=== PATIENT | female | born 2000 | race Caucasian/White ===

== ENCOUNTER 2024-02-19 03:00 | Emergency (ER) | payer MEDICAID ==
[~2024-02-19] VITALS: Ht 167.6 cm; Wt 54.4 kg
[2024-02-19 03:10] VITALS: BP_SYST 125; PULSE 90; RESP 18; TEMP 98.4; O2SAT 98
[2024-02-19] MEDS: KETOROLAC TROMETHAMINE 30 MG VIAL IVP ONE (03:56)
[2024-02-19 04:14] LABS: BASOPHILS % (AUTO) 0.2 % (0.0-2.0); EOSINOPHILS # (AUTO) 0.1 K/uL (0.0-0.4); HEMATOCRIT 41.4 % (36-48); LYMPHOCYTES # (AUTO) 1.9 K/uL (1.0-5.5); MEAN CORPUSCULAR HEMOGLOBIN 30 pg (27-31); MEAN CORPUSCULAR HGB CONC 34 % (32-36); MEAN CORPUSCULAR VOLUME 87 fL (79.0-98.0); MONOCYTES # (AUTO) 0.6 K/uL (0.0-1.0); MONOCYTES % (AUTO) 8.9 % (1.7-9.3); NEUTROPHILS # (AUTO) 3.8 K/uL (1.8-7.7); NEUTROPHILS % (AUTO) 59.9 % (40.0-70.0); PLATELET COUNT (AUTO) 219 K/uL (130-430); RED BLOOD CELL COUNT(AUTO) 4.76 MIL/uL (4.2-6.2); RED CELL DISTRIBUTION WIDTH 14.4 % (9.0-15.0); WHITE BLOOD COUNT (AUTO) 6.3 K/uL (4.8-10.8)
[2024-02-19 04:31] LABS: PROTHROMBIN TIME 10.3 SECS (9.5-12.5)
[2024-02-19 04:35] LABS: ALANINE AMINOTRANSFERASE 22 U/L (12-78); ALBUMIN 4.1 g/dL (3.4-4.8); ANION GAP 10 (5-15); ASPARTATE AMINOTRANSFERASE 13 U/L (10-37); CALCIUM 8.9 mg/dL (8.4-11.0); CARBON DIOXIDE 26 mmol/L (23-29); CHLORIDE 104 mmol/L (98-107); CREATININE 0.78 mg/dL (0.55-1.30); GFR AFRICAN AMERICAN 117 mL/min (>90); GFR NON AFRICAN-AMERICAN 96 mL/min (>90); GLUCOSE 92 mg/dL (74-106); POTASSIUM 3.4 mmol/L (3.5-5.1); SODIUM SERUM 140 mmol/L (136-145); TOTAL BILIRUBIN 0.8 mg/dL (0.0-1.0); TOTAL PROTEIN, SERUM 7.8 g/dL (6.4-8.3); UREA NITROGEN, BLOOD 17 mg/dL (8-21)
[2024-02-19 04:38] LABS: BILIRUBIN,DIRECT 0.2 mg/dL (0.0-0.3)
[2024-02-19] MEDS ORDERED: IBUP-1968 PO (04:49)
[2024-02-19 05:00] VITALS: BP_SYST 115; PULSE 84; RESP 22; TEMP 98; O2SAT 98
== END 2024-02-19 05:00 | disposition home or self-care (01) ==
LOC: SED 03:00
DX: R07.89 Other chest pain (principal); Z79.899 Other long term (current) drug therapy
CPT/HCPCS: 99285; 96374; 71045; 80076; 80048; 83880; 85025; 85379; 85610; 85730; 84484; 36415; 93005; 81025; J1885